=== PATIENT | female | born 1995 | race Caucasian/White ===

== ENCOUNTER 2016-11-02 17:27 | Emergency (ER) | payer OTHER ==
[2016-11-02] MEDS ORDERED: Morphine INJ* 4 MG/ML 1 ML SYRINGE IM ONE (17:35)
--- NOTE | 2016-11-02 18:21 | ED ---
Upper Extremity Pain - HPI Summary HPI Summary: Patient presents to ED with left shoulder and clavicle pain after falling after a jump and handstand. She states she hit her head, but on a soft surface, denies LOC or memory loss or confusion. Denies N/V. She states the shoulder pain is 10/10 and she is tearful on arrival from ambulance. She denies medications and allergies. She denies other pain and denies any chest pain or difficultly breathing. Denies back or neck pain. - History of Current Complaint Chief Complaint: Rachellesophielouis Stated Complaint: LEFT SHOULDER PAIN Time Seen by Provider: 11/02/16 17:36 Hx Obtained From: Patient Mechanism Of Injury: Blunt Trauma Onset/Duration: Started Minutes Ago Timing: Constant Severity Initially: Severe Severity Currently: Severe Pain Location: Shoulder Character: Sharp Aggravating Factor(s): Lifting, Internal/External Rotation Alleviating Factor(s): Nothing Associated Signs & Symptoms: Positive: Negative Related History: Dominant Hand Right - Risk Factors Non-Orthopedic Risk Factor: Negative DVT Risk Factors: Negative Septic Arthritis Risk Factor: Negative Compartment Syndrome Risk Factors: Pain - Allergies/Home Medications Allergies/Adverse Reactions: Allergies Allergy/AdvReac Type Severity Reaction Status Date / Time No Known Allergies Allergy Verified 08/09/15 08:26 PMH/Surg Hx/FS Hx/Imm Hx Previously Healthy: Yes Sensory History: Reports: Hx Contacts or Glasses Opthamlomology History: Reports: Hx Contacts or Glasses - Surgical History Surgery Procedure, Year, and Place[place] [facility] [place] [facility] [place]ious Disease History: No Infectious Disease History: Denies: Traveled Outside the [place] in Last 30 Days - Family History Known Family History: Positive: None Family History: reviewed and noncontributory - Social History Occupation: Student Lives: With Family Alcohol Use: Occasionally Hx Substance Use: No Substance Use Type: Reports: None Hx Tobacco Use: No Smoking Status (MU): Never Smoked Tobacco Do You Chew or Dip Tobacco: No Have You Chewed or Dipped Tobacco in the LAST YEAR: No Review of Systems Constitutional: Negative Eyes: Negative Respiratory: Negative Gastrointestinal: Negative Genitourinary: Negative Positive: no symptoms reported, see HPI Positive: Arthralgia, Myalgia - left shoulder Skin: Negative Neurological: Negative Psychological: Normal All Other Systems Reviewed And Are Negative: Yes Physical Exam Triage Information Reviewed: Yes Vital Signs On Initial Exam: Initial Vitals Temp Pulse Resp BP Pulse Ox 98.2 F 93 20 126/90 100 11/02/16 17:30 11/02/16 17:30 11/02/16 17:30 11/02/16 17:30 11/02/16 17:30 Vital Signs Reviewed: Yes Appearance: Positive: Well-Nourished, Pain Distress Skin: Positive: Warm, Skin Color Reflects Adequate Perfusion Head/Face: Positive: Normal Head/Face Inspection Eyes: Positive: EOMI, RAYNA, Conjunctiva Clear Neck: Positive: Supple, No Lymphadenopathy Respiratory/Lung Sounds: Positive: Clear to Auscultation, Breath Sounds Present Cardiovascular: Positive: RRR Musculoskeletal: Positive: Strength/ROM Intact, Pain @ - left shoulder pain Neurological: Positive: Normal, Sensory/Motor Intact, Alert, Oriented to Person Place, Time, Speech Normal Psychiatric: Positive: Normal AVPU Assessment: Verbal (Reponds To) - [place] Coma Scale Best Eye Response: 4 - Spontaneous Best Motor Response: 6 - Obeys Commands Best Verbal Response: 5 - Oriented Diagnostics - Vital Signs Vital Signs Temp Pulse Resp BP Pulse Ox 11/02/16 17:46 20 11/02/16 17:30 98.2 F 93 20 126/90 100 - Laboratory Lab Statement: Any lab studies that have been ordered have been reviewed, and results considered in the medical decision making process. Course/Dx - Course Course Of Treatment: Patient arrives with pain in left shoulder after fall/ injury. She denies numbness or tingling. Patient was given 8mg morphine for 10 /10 pain. IMPRESSION: Comminuted fracture midshaft left clavicle with inferior displacement approximately 1 shafts width. At 7:00p Dr conde was shown the photo and impression of fracture with suggestion of sling and follow up. Patient OK with plan. Provider spoke with mother at 7:30 and explained injury and follow up. Patient given Tiro for pain management and sling. Follow up with Dr. Conde this week. Return precautions given. - Diagnoses Differential Diagnosis/HQI/PQRI: Positive: Fracture (Open), Fracture (Closed), Strain, Sprain Provider Diagnoses: Clavicle fracture Discharge - Discharge Plan Condition: Stable Disposition: HOME Prescriptions: HYDROcodone/ACETAMIN 5-325 MG* [Tiro 5-325 TAB*] 1 tab PO Q4H PRN #24 tab MDD 6 PRN Reason: Pain Patient Education Materials: Clavicle Fracture (ED) Referrals: [facility] DAKSHA Alfonso [Primary Care Provider] - Raj Conde MD [Medical Doctor] - Additional Instructions: Follow up with ortho this week. I have given you the phone number and address of the orthopedic physician you should call on Thursday morning. Do not take arm out of sling unless to shower, then keep arm directly at side without movement. Do not drive while having the sling. Ibuprofen 600mg three times daily as needed for pain. For pain not well controlled with Ibuprofen, take 1 tab of Tiro up to every 4 hours. These medications are best if you alternate them throughout the day. Make sure you eat something when you take the medications. Ortho will take over your care and follow their directions. Come back to ED for any worsening symptoms.
--- NOTE | 2016-11-02 18:32 | RAD ---
Indication: Left shoulder injury after fall. 3 views of left shoulder demonstrates scapula and humerus to be intact. Comminuted fracture of the midshaft of the clavicle with inferior displacement approximately 1 shafts width. Overriding of the fracture fragment is noted. IMPRESSION: Comminuted fracture midshaft left clavicle with inferior displacement approximately 1 shafts width.
--- NOTE | 2016-11-02 18:34 | RAD ---
Indication: Left shoulder injury. Single view of the chest and shape no mediastinal shift. Heart is of normal size and configuration. Lung mccord are clear. Comminuted fracture of the left clavicle is again identified. IMPRESSION: Lung mccord appear clear.
--- NOTE | 2016-11-02 18:34 | RAD ---
Indication: Left clavicle fracture. Single ankle view of the left clavicle demonstrates a comminuted fracture of the midshaft of the left clavicle with at least 3 major components. Inferior displacement of the distal fracture fragment approximately 1 1/2 shafts width is noted. There appears to be overriding of the fracture fragments. IMPRESSION: Comminuted fracture midshaft left clavicle with inferior displacement of approximately 1 1/2 shafts width of the distal fracture fragment.
[2016-11-02] MEDS ORDERED: Ondansetron ODT TAB* 4 MG SL PRN (19:44)
[2016-11-02] MEDS ORDERED: Ondansetron ODT TAB* 4 MG ONE (19:52)
[2016-11-02] MEDS ORDERED: HYDROcodone/ACETAMIN 5-325 MG* 1 TAB PO ONE (20:22)
[2016-11-02 20:32] VITALS: BP 119/83
== END 2016-11-02 20:27 | disposition home or self-care (01) ==
LOC: ED 17:27
DX: S42.002A Fracture of unspecified part of left clavicle, initial encounter for closed fracture (principal); W19.XXXA Unspecified fall, initial encounter; Y93.89 Activity, other specified; Y92.9 Unspecified place or not applicable
CPT/HCPCS: 71010; 96372; 99282; J2270

== ENCOUNTER 2018-09-27 17:23 | Emergency (ER) | payer SELFPAY ==
[2018-09-27] MEDS ORDERED: Ketorolac INJ* 30 MG/ML 1 ML VIAL IV PUSH ONE (17:47)
[2018-09-27] MEDS ORDERED: Ondansetron INJ* 2 MG/ML VIAL IV ONE (17:47)
[2018-09-27] MEDS ORDERED: Morphine INJ* 2 MG/ML 1 ML SYRINGE (TWO MG - NEW SYRINGE VERSION) IV ONE (17:55)
[2018-09-27] MEDS ORDERED: NS 0.9% 1000 ML** 1,000 ML IV ONE (17:55)
[2018-09-27] MEDS ORDERED: Morphine 4 MG/ML VIAL (1 ml) 4 MG/ML VIAL IV ONE (18:15)
--- NOTE | 2018-09-27 18:18 | ED ---
GI/ HPI - HPI Summary HPI Summary: 23-year-old female presents with LLQ pain for the past couple hours. She states is very sharp in nature. States it starts in her flank and moves to her left lower quadrant. She never had this pain before. Has history of ovarian cyst that feels different. Denies any abnormal vaginal discharge. Denies any chance she is as has an IUD. She admits to some nausea but no vomiting. No diarrhea or constipation. No fevers. Hasn't taking anything for her symptoms. never had this pain before. - History of Current Complaint Chief Complaint: EDAbdPain Time Seen by Provider: 09/27/18 17:39 Stated Complaint: ABD PAIN PER EMS Pain Intensity: 10 - Additional Pertinent History Primary Care Physician: [id number] - Allergy/Home Medications Allergies/Adverse Reactions: Allergies Allergy/AdvReac Type Severity Reaction Status Date / Time No Known Allergies Allergy Verified 08/09/15 08:26 PMH/Surg Hx/FS Hx/Imm Hx Endocrine/Hematology History: Denies: Hx Anticoagulant Therapy Cardiovascular History: Denies: Hx Myocardial Infarction Sensory History: Reports: Hx Contacts or Glasses Opthamlomology History: Reports: Hx Contacts or Glasses - Surgical History Surgery Procedure, Year, and Place: [place] [facility] [place] Infectious Disease History: No Infectious Disease History: Denies: Traveled Outside the [place] in Last 30 Days - Family History Known Family History: Positive: None Family History: reviewed and noncontributory - Social History Alcohol Use: Occasionally Hx Substance Use: No Substance Use Type: Reports: None Hx Tobacco Use: No Smoking Status (MU): Never Smoked Tobacco Review of Systems Negative: Fever Negative: Chest Pain Negative: Shortness Of Breath Positive: Abdominal Pain, Nausea. Negative: Vomiting, Diarrhea Positive: flank pain. Negative: dysuria All Other Systems Reviewed And Are Negative: Yes Physical Exam Triage Information Reviewed: Yes Vital Signs On Initial Exam: Initial Vitals Temp Pulse Resp BP Pulse Ox 96.9 F 101 22 131/81 100 09/27/18 17:34 09/27/18 17:34 09/27/18 17:34 09/27/18 17:34 09/27/18 17:34 Vital Signs Reviewed: Yes Appearance: Positive: Pain Distress Skin: Positive: Warm, Dry Head/Face: Positive: Normal Head/Face Inspection Eyes: Positive: Normal, Conjunctiva Clear ENT: Positive: Pharynx normal Respiratory/Lung Sounds: Positive: Clear to Auscultation, Breath Sounds Present Cardiovascular: Positive: Normal, RRR Abdomen Description: Positive: Soft, CVA Tenderness (L), Other: - tenderness LLQ Bowel Sounds: Positive: Present Musculoskeletal: Positive: Normal Neurological: Positive: Normal Psychiatric: Positive: Normal Diagnostics - Vital Signs Vital Signs Temp Pulse Resp BP Pulse Ox 09/27/18 17:34 96.9 F 101 22 131/81 100 - Laboratory Result Diagrams: 09/27/18 18:25 09/27/18 18:25 Lab Statement: Any lab studies that have been ordered have been reviewed, and results considered in the medical decision making process. - Ultrasound No standard instances Summary of Ultrasound Findings: IMPRESSION: Mild left hydronephrosis possibly due to a obstructing ureteral calculus which. can be confirmed with CT KUB. Re-Evaluation - Re-Evaluation First Eval Re-Evaluation Time: 19:22 Change: Improved Comment: feeling better GIGU Course/Dx - Course Course Of Treatment: 23-year-old female presents with LLQ pain for the past couple hours. She states is very sharp in nature. States it starts in her flank and moves to her left lower quadrant. She never had this pain before. Has history of ovarian cyst that feels different. Denies any abnormal vaginal discharge. Denies any chance she is as has an IUD. She admits to some nausea but no vomiting. No diarrhea or constipation. No fevers. Hasn't taking anything for her symptoms. never had this pain before. On exam has left lower quadrant pain and left flank pain. wbc normal. CRP normal. Urine shows blood. transvaginal ultrasound normal. Renal ultrasound shows [place]. With all symptoms likely has a kidney stone. I offered to do a CT to look size but with it being her first stone discussed will just treat and have follow-up with urology. gave flomax and pain medication. Patient understands agrees the plan. - Diagnoses Differential Diagnoses - Female: Pyelonephritis, Urinary Tract Infection, Ureteral Calculi Provider Diagnoses: Urethral calculus Discharge - Sign-Out/Discharge Documenting (check all that apply): Patient Departure Patient Received Moderate/Deep Sedation with Procedure: No - Discharge Plan Condition: Good Disposition: HOME Prescriptions: Ondansetron ODT TAB* [Zofran 4 MG Odt TAB*] 4 mg PO Q6H PRN #16 tab.odt PRN Reason: Nausea oxyCODONE/Acetamin 5/325 MG* [Percocet 5/325 TAB*] 1 tab PO Q6H PRN #16 tab MDD 4 PRN Reason: Pain Tamsulosin CAP* [Flomax CAP*] 0.4 mg PO DAILY #7 cap Patient Education Materials: Ureteral Stones (ED) Referrals: Albert Moreno MD [Medical Doctor] - Additional Instructions: Take ibuprofen every 6 hours and percocet as needed every 6 hours Take Zofran every 6 hours for nausea as needed Take Flomax daily starting tomorrow, first dose given in ED until stone expelled , make sure stand up slowly Follow up with urology, call office tomorrow for appointment Strain urine until collect stone Return to ED if unable to manage pain at home, develop fever, or any new or worsening symptoms - Billing Disposition and Condition Condition: GOOD Disposition: Home
[2018-09-27 18:37] LABS: ABS Basophils 0 10^3/ul (0-0.2); ABS Eosinophils 0 10^3/ul (0-0.6); ABS Lymphocytes 1.5 10^3/ul (1.0-4.8); ABS Monocytes 0.5 10^3/ul (0-0.8); ABS Neutrophils 6.2 10^3/ul (1.5-7.7); ABS Nucleated RBC 0 10^3/ul; Eosinophil % 0.3 %; Hematocrit 36 % (33-41); Lymphocyte % 18.3 %; Mean Corpuscular HGB Conc 33 g/dL (31-36); Mean Corpuscular Hemoglobin 27 pg (27-31); Mean Corpuscular Volume 82 fL (80-97); Mean Platelet Volume 8.4 fL (7.4-10.4); Nucleated Red Blood Cells % 0.1; Platelet Count 263 10^3/uL (150-450); Red Blood Count 4.37 10^6 /uL (3.70-4.87); Red Cell Distribution Width 14 % (10.5-15); White Blood Count 8.3 10^3/uL (3.5-10.8)
[2018-09-27 18:57] LABS: ALT 30 U/L (7-52); AST 140 U/L (13-39); Albumin 3.7 g/dL (3.2-5.2); Alkaline Phosphatase 63 U/L (34-104); Anion Gap 9 mmol/L (2-11); BUN/Creatinine Ratio 13.3 (8-20); Blood Urea Nitrogen 10 mg/dL (6-24); C Reactive Protein 7.27 mg/L (<8.01); CO2 Carbon Dioxide 24 mmol/L (22-32); Calcium 8.9 mg/dL (8.6-10.3); Chloride 104 mmol/L (101-111); EGFR African American 116.9 (>60); EGFR Non-African American 96.6 (>60); Globulin 3.7 g/dL (2-4); Glucose 99 mg/dL (70-100); Potassium 3.8 mmol/L (3.5-5.0); Sodium 137 mmol/L (135-145); Total Protein 7.4 g/dL (6.4-8.9)
[2018-09-27 19:04] LABS: HCG Pregnancy < 0.60 mIU/mL
[2018-09-27 20:03] LABS: Urine Appearance Cloudy; Urine Bacteria Absent (Absent); Urine Bilirubin Negative (Negative); Urine Blood 3+ (Negative); Urine Color Yellow; Urine Glucose Negative (Negative); Urine Ketones 1+ (Negative); Urine Nitrite Negative (Negative); Urine Protein 2+(100 mg/dL) (Negative); Urine Red Blood Cell 3+(>10/hpf) (Absent); Urine Specific Gravity 1.019 (1.010-1.030); Urine Urobilinogen Negative (Negative); Urine White Blood Cell Absent (Absent)
[2018-09-27] MEDS ORDERED: Tamsulosin CAP* 0.4 MG PO ONE (20:08)
[2018-09-27 21:46] VITALS: BP 128/72
== END 2018-09-27 21:45 | disposition home or self-care (01) ==
LOC: ED 17:23
DX: N21.1 Calculus in urethra (principal); R10.32 Left lower quadrant pain; R11.0 Nausea
CPT/HCPCS: 36415; 76775; 76830; 80053; 81003; 81015; 83690; 84702; 85025; 86140; 96374; 96375; 96376; 99283; J1885; J2270; J2405